=== PATIENT | female | born 1995 ===

== ENCOUNTER 2016-09-19 17:33 | Emergency (ER) | payer MEDICAID ==
[2016-09-19 17:39] VITALS: RESP 16; TEMP 98.9; BMI 32.9
[2016-09-19 18:14] LABS: ADD MANUAL DIFF? NO
[2016-09-19 18:19] LABS: BASO # 0.03 K/mm3 (0.0-2.0); BASO % 0.3 % (0.0-3.0); EOS # 0.3 (0.0-0.7); EOS % 2.9 % (1.5-5.0); GRAN # 5.26 (1.4-6.5); GRAN % 56.7 % (50.0-68.0); LYMPH # 3.2 (1.2-3.4); LYMPH % 34.4 % (22.0-35.0); MEAN CELL VOLUME 71.3 fL (80.0-105.0); MEAN CORPUSCULAR HEMOGLOBIN 22.7 pg (25.0-35.0); MEAN CORPUSCULAR HGB CONC 31.9 g/dl (31.0-37.0); MEAN PLATELET VOLUME 10.6 fl (7.0-11.0); MONO # 0.5 (0.1-0.6); MONO % 5.7 % (1.0-6.0); PLATELET COUNT 286 10^3/uL (120.0-450.0); RED CELL DISTRIBUTION WIDTH 16.9 % (11.5-14.5); WHITE BLOOD COUNT 9.3 10^3/ul (4.5-11.0)
[2016-09-19 18:21] LABS: PH,URINE 6.5 (4.7-8.0); URINE BILIRUBIN NEGATIVE (NEGATIVE); URINE BLOOD TRACE-LYSED (NEGATIVE); URINE GLUCOSE (UA) NEGATIVE (NEGATIVE); URINE KETONE NEGATIVE (NEGATIVE); URINE LEUKOCYTE ESTERASE MODERATE Leu/uL (NEGATIVE); URINE PROTEIN NEGATIVE mg/dL (<30 mg/dL); URINE UROBILINOGEN 0.2 E.U./dL (<1 E.U./dL)
[2016-09-19 18:27] LABS: URINE COLOR YELLOW (YELLOW)
[2016-09-19 18:31] LABS: ALB/GLOB RATIO 1.1 (1.1-1.8); ALKALINE PHOSPHATASE 77 U/L (38-133); ALT/SGPT 30 U/L (7-56); AST/SGOT 42 U/L (15-39); BILIRUBIN,TOTAL 0.5 mg/dL (0.2-1.3); BLOOD UREA NITROGEN 11 mg/dL (7-21); CALCIUM 9.7 mg/dL (8.4-10.5); CARBON DIOXIDE 27 mmol/L (21-33); CHLORIDE 103 mmol/L (98-107); GFR AFRICAN-AMERICAN > 60; GLUCOSE,RANDOM 83 mg/dL (70-110); SODIUM 140 mmol/L (132-148); TOTAL PROTEIN 8.3 g/dL (5.8-8.3)
--- NOTE | 2016-09-19 18:38 | ED PDOC ---
Arrival/HPI - General Chief Complaint: Psychiatric Evaluation Time Seen by Provider: 09/19/16 17:45 Historian: Patient - History of Present Illness Narrative History of Present Illness (Text): 09/19/16 18:35 20-year-old female presents today sent in by her psychiatrist for psychiatric evaluation. Patient complaining of worsening depression. Patient states 3 weeks ago she took her mother's blood pressure medication and diabetic medication in attempt to try to kill herself. Patient states that she finally went to see her psychiatrist and her psychiatrist felt that the patient needed to come into the emergency room for psychiatric evaluation. Patient is complaining of depression at present time. She denies suicidal ideation currently but states that when she attempted to kill herself 3 weeks ago it was impulsive. No chest pain or shortness of breath. No abdominal pain. No nausea or vomiting. Past Medical History - Provider Review Nursing Documentation Reviewed: Yes - Travel History Have you recently traveled outside [place] w/in the past 3 mons?: No - Tetanus Immunization Tetanus Immunization: Unknown - Psychiatric Hx Substance Use: No - Surgical History Hx Tonsillectomy: Yes Family/Social History - Physician Review Nursing Documentation Reviewed: Yes Family/Social History: Unknown Family HX Smoking Status: Never Smoked Hx Alcohol Use: No Hx Substance Use: No Allergies/Home Meds Allergies/Adverse Reactions: Allergies No Known Allergies Allergy (Verified 09/19/16 17:37) Review of Systems - Review of Systems Constitutional: absent: Fatigue, Fevers Respiratory: absent: SOB, Cough Cardiovascular: absent: Chest Pain, Palpitations Gastrointestinal: absent: Abdominal Pain, Nausea, Vomiting Genitourinary Female: absent: Dysuria Musculoskeletal: absent: Arthralgias, Back Pain, Neck Pain Skin: absent: Rash, Pruritis Neurological: absent: Headache, Dizziness Psychiatric: Depression, Suicidal Ideation Physical Exam Vital Signs Reviewed: Yes Vital Signs Temp Pulse Resp BP Pulse Ox 09/19/16 17:37 98.9 F 78 16 113/77 99 Temperature: Afebrile Blood Pressure: Normal Pulse: Regular Respiratory Rate: Normal Appearance: Positive for: Well-Appearing, Non-Toxic, Comfortable Pain Distress: None Mental Status: Positive for: Alert and Oriented X 3 - Systems Exam Head: Present: Atraumatic Mouth: Present: Moist Mucous Membranes Neck: Present: Normal Range of Motion Respiratory/Chest: Present: Clear to Auscultation, Good Air Exchange. No: Respiratory Distress, Accessory Muscle Use Cardiovascular: Present: Regular Rate and Rhythm, Normal S1, S2. No: Murmurs Abdomen: No: Tenderness, Distention, Rebound, Guarding Upper Extremity: Present: Normal ROM Lower Extremity: Present: Normal ROM Neurological: Present: GCS=15, Speech Normal Skin: Present: Warm, Dry, Normal Color. No: Rashes Psychiatric: Present: Alert, Oriented x 3, Depressed Mood Medical Decision Making ED Course and Treatment: 09/19/16 18:37 Patient is nontoxic well-appearing in no distress vital signs are stable. CBC WNL CMP WNL Tylenol WNL Salicylate WNL Alcohol level WNL Urine drug screen wnl UA; + luekocytes, + bacteria cxr: wnl ekg normal sinus rhythm at 69 bpm normal axis normal intervals no ST elevations pt with uti will treat with macrobid pt is medically cleared for PES evaluation Patient was seen and evaluated by PES screener: clement. Patient currently denying suicidal or homicidal ideation All results discussed in depth with the patient Patient cleared psychiatrically for discharge. I will discharge the patient home on Macrobid and have her follow up with primary care physician and psychiatrist within the next 2 days. I advised me to return if symptoms worsen or persist or if new concerning symptoms develop. Patient verbalizes understanding of discharge instructions and need for immediate followup. all aspects of this case were discussed the attending of record. Impression; depression, UTI Follow-up with a primary care physician within the next 2 days Macrobid twice daily 10 days Follow-up with a psychiatrist within the next 2 days Return immediately if symptoms worsen persist or if new concerning symptoms develop - Lab Interpretations Lab Results: 09/19/16 18:00 09/19/16 18:00 Lab Results 09/19/16 18:30: Urine Opiates Screen Negative, Urine Methadone Screen Negative, Ur Barbiturates Screen Negative, Ur Phencyclidine Scrn Negative, Ur Amphetamines Screen Negative, U Benzodiazepines Scrn Negative, U Oth Cocaine Metabols Negative, U Cannabinoids Screen Negative 09/19/16 18:00: WBC 9.3, RBC 5.19, Hgb 11.8 L, Hct 37.0, MCV 71.3 L, MCH 22.7 L , MCHC 31.9, RDW 16.9 H, Plt Count 286, MPV 10.6, Gran % 56.7, Lymph % (Auto) 34.4, [place] % (Auto) 5.7, Eos % (Auto) 2.9, Baso % (Auto) 0.3, Gran # 5.26, Lymph # 3.2, [place] # 0.5, Eos # 0.3, Baso # 0.03, Sodium 140, Potassium 4.0, Chloride 103, Carbon Dioxide 27, Anion Gap 14, BUN 11, Creatinine 0.6, Est GFR ( Amer) > 60, Est GFR (Non-Af Amer) > 60, Random Glucose 83, Calcium 9.7, Total Bilirubin 0.5, AST 42 H, ALT 30, Alkaline Phosphatase 77, Total Protein 8.3, Albumin 4.4, Globulin 3.9, Albumin/Globulin Ratio 1.1, Urine Color Yellow, Urine Appearance Sl cloudy, Urine pH 6.5, Ur Specific [place] 1.020, Urine Protein Negative, Urine Glucose (UA) Negative, Urine Ketones Negative, Urine Blood Trace-lysed H, Urine Nitrate Negative, Urine Bilirubin Negative, Urine Urobilinogen 0.2, Ur Leukocyte Esterase Moderate H, Urine RBC 1 - 3, Urine WBC 15 - 20, Ur Epithelial Cells 1 - 3, Urine Bacteria Mod, Urine HCG, Qual Negative , Salicylates < 1 L, Acetaminophen < 10.0 L, Alcohol, Quantitative < 10 - Medication Orders Current Medication Orders: Discontinued Medications Nitrofurantoin Macrocrystals (Macrobid) 100 mg PO STAT STA Stop: 09/19/16 20:05 Disposition/Present on Arrival - Present on Arrival Any Indicators Present on Arrival: No History of DVT/PE: No History of Uncontrolled Diabetes: No Urinary Catheter: No History of Decub. Ulcer: No History Surgical Site Infection Following: None - Disposition Have Diagnosis and Disposition been Completed?: Yes Diagnosis: Depression, UTI (urinary tract infection) Disposition: HOME/ ROUTINE Disposition Time: 20:41 Patient Plan: Discharge Patient Problems: Current Active Problems Problem Status Diagnosed Depression Acute UTI (urinary tract infection) Acute Condition: GOOD Discharge Instructions (ExitCare): Urinary Tract Infection in Women (ED) Additional Instructions: macrobid; 1 tablet twice daily x 10 days Follow-up with primary care physician within the next 2 days follow up with the psychiatrist within the next 2 days Return if symptoms worsen or persist or if new concerning symptoms develop Prescriptions: Nitrofurantoin Macrocrystals [Macrobid] 100 mg PO BID #20 cap Referrals: Hermila Kenny DO [Primary Care Provider] - [facility] [Outside[facility] - Follow up with primary Forms: WORK NOTE, SCHOOL NOTE
[2016-09-19 18:49] LABS: URINE APPEARANCE SL CLOUDY (CLEAR)
[2016-09-19 18:50] LABS: URINE WBC 15 - 20 /hpf (0-6)
[2016-09-19 18:51] LABS: URINE BACTERIA MOD (NEG)
[2016-09-20 00:47] VITALS: BP 124/75; PULSE 71; O2SAT 100
--- NOTE | 2016-09-20 11:20 | CARD ---
APPROVED REPORT EKG Measurement Heart [id number] <Conclusion> Normal sinus rhythm Voltage criteria for left ventricular hypertrophy Abnormal ECG
== END 2016-09-19 21:10 | disposition home or self-care (01) ==
LOC: ED 17:33
DX: F32.9 Major depressive disorder, single episode, unspecified (principal); N39.0 Urinary tract infection, site not specified

== ENCOUNTER 2017-05-07 04:12 | Emergency (ER) | payer MEDICAID ==
[2017-05-07 04:13] VITALS: BMI 32.9
[2017-05-07] MEDS ORDERED: Sodium Chloride 0.9% 1,000 ML IV STA (04:47)
--- NOTE | 2017-05-07 05:03 | ED PDOC ---
Arrival/HPI - General Chief Complaint: Alcohol Ingestion Time Seen by Provider: 05/07/17 04:46 Past Medical History - Tetanus Immunization Tetanus Immunization: Unknown - Cardiac Hx Cardiac Disorders: No - Pulmonary Hx Respiratory Disorders: No - Neurological Hx Neurological Disorder: No - HEENT Hx HEENT Disorder: No - Renal Hx Renal Disorder: No - Endocrine/Metabolic Hx Endocrine Disorders: No - Hematological/Oncological Hx Blood Disorders: No - Integumentary Hx Dermatological Disorder: No - Musculoskeletal/Rheumatological Hx Musculoskeletal Disorders: No - Gastrointestinal Hx Gastrointestinal Disorders: No - Genitourinary/Gynecological Hx Genitourinary Disorders: No - Psychiatric Hx Psychophysiologic Disorder: No Hx Substance Use: No - Surgical History Hx Tonsillectomy: Yes Family/Social History Smoking Status: Never Smoked Hx Alcohol Use: Yes Frequency of alcohol use: Socially Hx Substance Use: No Allergies/Home Meds Allergies/Adverse Reactions: Allergies No Known Allergies Allergy (Verified 09/19/16 17:37) Home Medications: Home Meds Medication Instructions Recorded Confirmed No Known Home Med 05/07/17 05/07/17 Medical Decision Making - EKG Interpretation EKG Interpretation (Text): 05/07/17 04:49 NSR at 66 BPM,LVH by voltage,No ectopy,intervals are wnl Interpreted by ED Physician: Yes Type: 12 lead EKG Comparison: No previous EKG avail. - Medication Orders Current Medication Orders: Sodium Chloride (Sodium Chloride 0.9%) 1,000 mls @ 30 mls/hr IV .Q24H STA Stop: 05/08/17 04:46 Disposition/Present on Arrival - Present on Arrival History of DVT/PE: No History of Uncontrolled Diabetes: No Urinary Catheter: No History of Decub. Ulcer: No History Surgical Site Infection Following: None - Disposition
--- NOTE | 2017-05-07 05:06 | ED PDOC ---
Arrival/HPI - General Chief Complaint: Alcohol Ingestion Time Seen by Provider: 05/07/17 04:46 Historian: Patient - History of Present Illness Narrative History of Present Illness (Text): 05/07/17 04:42 A 21 year old female is brought in by mother and friend, presents to the emergency department with AMS. Per mother, patient went to a libertarian with friend and drank wine. Patient was found unconscious on the floor and mother called 911. Mother states patient does not normally go to parties, and has no history of EtOH or substance abuse, or smoking. Also, she notes patient has been depressed in the past and approximately 6 months ago took her diabetes and hypertension pills, and told her mother she took them because she felt sad and ugly. Mother believes patient experienced suicidal ideation and told patient is was wrong to take the pills. Patient was not taken to the hospital at the time. Also, patient is scheduled to see a psychiatrist in 3 weeks. Patient has recently been optimistic and happy, according to mother, and does not believes she was attempting suicide at the libertarian. Believes something may have been mixed in the wine to cause her to become unresponsive. No other complaints are mentioned. Patient unable to cooperate due to AMS and intoxication. No PMD Past Medical History - Provider Review Nursing Documentation Reviewed: Yes - Tetanus Immunization Tetanus Immunization: Unknown - Cardiac Hx Cardiac Disorders: No - Pulmonary Hx Respiratory Disorders: No - Neurological Hx Neurological Disorder: No - HEENT Hx HEENT Disorder: No - Renal Hx Renal Disorder: No - Endocrine/Metabolic Hx Endocrine Disorders: No - Hematological/Oncological Hx Blood Disorders: No - Integumentary Hx Dermatological Disorder: No - Musculoskeletal/Rheumatological Hx Musculoskeletal Disorders: No - Gastrointestinal Hx Gastrointestinal Disorders: No - Genitourinary/Gynecological Hx Genitourinary Disorders: No - Psychiatric Hx Psychophysiologic Disorder: No Hx Substance Use: No - Surgical History Hx Tonsillectomy: Yes Family/Social History - Physician Review Nursing Documentation Reviewed: Yes Family/Social History: No Known Family HX Smoking Status: Never Smoked Hx Alcohol Use: Yes Frequency of alcohol use: Socially Hx Substance Use: No Allergies/Home Meds Allergies/Adverse Reactions: Allergies No Known Allergies Allergy (Verified 09/19/16 17:37) Home Medications: Home Meds Medication Instructions Recorded Confirmed No Known Home Med 05/07/17 05/07/17 Review of Systems - Review of Systems Systems not reviewed;Unavailable: Altered Mental Status Physical Exam - Physical Exam Physical Exam Limitations: Altered Mental Status Vital Signs Temp Pulse Resp BP Pulse Ox 05/07/17 06:14 95.1 F L 94 H 18 100 05/07/17 05:29 94.7 F L 78 19 104/55 L 100 05/07/17 04:17 94.7 F L 69 15 108/54 L 100 Temperature: Hypothermic Blood Pressure: Normal Pulse: Bradycardic Respiratory Rate: Normal Appearance: Positive for: Well-Appearing Mental Status: Positive for: Comatose - Systems Exam Head: Present: Atraumatic, Normocephalic Pupils: Present: PERRL Extroacular Muscles: Present: Other Conjunctiva: Present: Normal Ears: Present: Normal Mouth: Present: Moist Mucous Membranes Pharnyx: Present: Normal Nose (Internal): Present: Normal Inspection Neck: Present: Normal Range of Motion Respiratory/Chest: Present: Clear to Auscultation, Good Air Exchange Cardiovascular: Present: Regular Rate and Rhythm, Murmurs Abdomen: Present: Normal Bowel Sounds. No: Tenderness, Distention, Peritoneal Signs Back: Present: Normal Inspection Upper Extremity: Present: Normal Inspection, NORMAL PULSES. No: Tenderness, Swelling Lower Extremity: Present: Normal Inspection, Edema, NORMAL PULSES Skin: Present: Warm, Dry Psychiatric: Present: Intoxicated Medical Decision Making ED Course and Treatment: 05/07/17 04:47 Impression: 21 year old female currently AMS. Plan: -- Labs -- IV Fluids -- O2 Nasal Cannula -- IV Fluids -- Reassess and disposition Prior Visits: Notes and results from previous visits were reviewed. Patient was last seen in the emergency department on 09/19/2016 for worsening depression. Patient was d/ c home and told to follow-up with psychiatrist and primary care physician. Progress Notes:Pt continues to be deeply somnolent,maintaining her airway, nonverbal 05/07/17 06:24 Reassessment Condition: Re-examined, Unchanged - Lab Interpretations Narrative Lab Interpretation (Text): 05/07/17 06:25 Pt with quite signif ETOH level which would explain her unresponsiveness Lab Results: 05/07/17 04:35 05/07/17 04:35 Lab Results 05/07/17 04:35: Alcohol, Quantitative 245 H 05/07/17 04:35: Salicylates < 1 L, Acetaminophen < 10.0 L 05/07/17 04:35: Urine Opiates Screen Negative, Urine Methadone Screen Negative, Ur Barbiturates Screen Negative, Ur Phencyclidine Scrn Negative, Ur Amphetamines Screen Negative, U Benzodiazepines Scrn Negative, U Oth Cocaine Metabols Negative, U Cannabinoids Screen Negative 05/07/17 04:35: Sodium 143, Potassium 3.6, Chloride 103, Carbon Dioxide 20 L, Anion Gap 23 H, BUN 15, Creatinine 0.7, Est GFR ( Amer) > 60, Est GFR ( Non-Af Amer) > 60, Random Glucose 113 H, Calcium 9.3, Total Bilirubin 0.3, AST 30, ALT 30, Alkaline Phosphatase 94, Total Protein 8.3, Albumin 4.7, Globulin 3.7, Albumin/Globulin Ratio 1.3 05/07/17 04:35: WBC 11.2 H D, RBC 5.29, Hgb 11.8 L, Hct 37.5, MCV 70.9 L, MCH 22.3 L, MCHC 31.5, RDW 17.1 H, Plt Count 240, MPV 10.2, Gran % 78.1 H, Lymph % ( Auto) 17.6 L, [place] % (Auto) 2.9, Eos % (Auto) 1.1 L, Baso % (Auto) 0.3, Gran # 8.77 H, Lymph # 2.0, [place] # 0.3, Eos # 0.1, Baso # 0.03 I have reviewed the lab results: Yes - EKG Interpretation EKG Interpretation (Text): 05/07/17 06:27 EKG shows a NSR at 66BPM.No ectopy,pos voltage criteria for LVH.Otherwise wnl Interpreted by ED Physician: Yes Type: 12 lead EKG Comparison: No previous EKG avail. - Medication Orders Current Medication Orders: Sodium Chloride (Sodium Chloride 0.9%) 1,000 mls @ 30 mls/hr IV .Q24H STA Stop: 05/08/17 04:46 Last Admin: 05/07/17 05:05 Dose: 30 mls/hr eMAR Start Stop Document 05/07/17 05:05 RD (Rec: 05/07/17 05:05 RD [id number]) Intravenous Solution Start Date 05/07/17 Start Time 05:05 End Date 12/10/17 End time 06:05 Total Infusion Time 60 - Scribe Statement The provider has reviewed the documentation as recorded by the Teena Matute Provider Baronibjade Attestation: All medical record entries made by the Scribe were at my direction and personally dictated by me. I have reviewed the chart and agree that the record accurately reflects my personal performance of the history, physical exam, medical decision making, and the department course for this patient. I have also personally directed, reviewed, and agree with the discharge instructions and disposition. Disposition/Present on Arrival - Present on Arrival History of DVT/PE: No History of Uncontrolled Diabetes: No Urinary Catheter: No History of Decub. Ulcer: No History Surgical Site Infection Following: None - Disposition Forms: [employer] ([place])
[2017-05-07 05:12] LABS: BASO # 0.03 K/mm3 (0.0-2.0); BASO % 0.3 % (0.0-3.0); EOS # 0.1 (0.0-0.7); EOS % 1.1 % (1.5-5.0); GRAN # 8.77 (1.4-6.5); GRAN % 78.1 % (50.0-68.0); HEMOGLOBIN 11.8 g/dL (12.0-16.0); LYMPH % 17.6 % (22.0-35.0); MEAN CELL VOLUME 70.9 fl (80.0-105.0); MEAN CORPUSCULAR HEMOGLOBIN 22.3 pg (25.0-35.0); MEAN CORPUSCULAR HGB CONC 31.5 g/dl (31.0-37.0); MEAN PLATELET VOLUME 10.2 fl (7.0-11.0); MONO # 0.3 (0.1-0.6); MONO % 2.9 % (1.0-6.0); RBC 5.29 10^6/uL (3.5-6.1); RED CELL DISTRIBUTION WIDTH 17.1 % (11.5-14.5); WHITE BLOOD COUNT 11.2 10^3/ul (4.5-11.0)
[2017-05-07 05:21] LABS: ALB/GLOB RATIO 1.3 (1.1-1.8); ALBUMIN 4.7 g/dL (3.0-4.8); ALT/SGPT 30 U/L (7-56); AST/SGOT 30 U/L (14-36); BLOOD UREA NITROGEN 15 mg/dL (7-21); CALCIUM 9.3 mg/dL (8.4-10.5); GFR AFRICAN-AMERICAN > 60; GFR NON-AFRICAN AMERICAN > 60
[2017-05-07 05:23] LABS: ACETAMINOPHEN < 10.0 ug/ml (10.0-20.0); SALICYLATE < 1 mg/dL (2.0-20.0)
[2017-05-07 05:30] LABS: BARBITURATES, UR NEGATIVE (NEGATIVE); BENZODIAZEPINES, UR NEGATIVE (NEGATIVE); OPIATES, UR NEGATIVE (NEGATIVE); PHENCYCLIDINE, UR NEGATIVE (NEGATIVE)
--- NOTE | 2017-05-07 07:27 | ED PDOC ---
Physical Exam Vital Signs Temp Pulse Resp BP Pulse Ox 05/07/17 07:15 97.9 F 100 H 19 116/63 100 05/07/17 06:47 98.1 F 101 H 18 92/53 L 98 05/07/17 06:14 95.1 F L 94 H 18 100 05/07/17 05:29 94.7 F L 78 19 104/55 L 100 05/07/17 04:17 94.7 F L 69 15 108/54 L 100 Medical Decision Making ED Course and Treatment: 05/07/17 07:00 Case is signed out to me by Dr. Gooden. Patient came in to the emergency department with AMS. According to mother, patient went to a alliance party and drank wine. Patient was found unconscious on the floor. Currently patient is being observed until sobriety. 05/07/17 07:45 Patient is sober. She is awake, alert, and oriented x 3. No slurred speech. No ataxia. No SI or HI. Denies any pain. On reevaluation the patient is in no acute distress. Patient was given the opportunity to ask question, all questions were answered and there is agreement with the plan to discharge the patient home. Patient is stable for discharge and will be leaving with family. She has follow with her PMD and Psychiatrist. - Lab Interpretations Lab Results: 05/07/17 04:35 05/07/17 04:35 Lab Results 05/07/17 04:35: Alcohol, Quantitative 245 H 05/07/17 04:35: Salicylates < 1 L, Acetaminophen < 10.0 L 05/07/17 04:35: Urine Opiates Screen Negative, Urine Methadone Screen Negative, Ur Barbiturates Screen Negative, Ur Phencyclidine Scrn Negative, Ur Amphetamines Screen Negative, U Benzodiazepines Scrn Negative, U Oth Cocaine Metabols Negative, U Cannabinoids Screen Negative 05/07/17 04:35: Sodium 143, Potassium 3.6, Chloride 103, Carbon Dioxide 20 L, Anion Gap 23 H, BUN 15, Creatinine 0.7, Est GFR ( Amer) > 60, Est GFR ( Non-Af Amer) > 60, Random Glucose 113 H, Calcium 9.3, Total Bilirubin 0.3, AST 30, ALT 30, Alkaline Phosphatase 94, Total Protein 8.3, Albumin 4.7, Globulin 3.7, Albumin/Globulin Ratio 1.3 12/10/17 04:35: WBC 11.2 H D, RBC 5.29, Hgb 11.8 L, Hct 37.5, MCV 70.9 L, MCH 22.3 L, MCHC 31.5, RDW 17.1 H, Plt Count 240, MPV 10.2, Gran % 78.1 H, Lymph % ( Auto) 17.6 L, [place] % (Auto) 2.9, Eos % (Auto) 1.1 L, Baso % (Auto) 0.3, Gran # 8.77 H, Lymph # 2.0, [place] # 0.3, Eos # 0.1, Baso # 0.03 - Medication Orders Current Medication Orders: Sodium Chloride (Sodium Chloride 0.9%) 1,000 mls @ 30 mls/hr IV .Q24H STA Stop: 05/08/17 04:46 Last Admin: 05/07/17 05:05 Dose: 30 mls/hr eMAR Start Stop Document 05/07/17 05:05 RD (Rec: 05/07/17 05:05 RD [id number]) Intravenous Solution Start Date 05/07/17 Start Time 05:05 End Date 05/07/17 End time 06:05 Total Infusion Time 60 - Scribe Statement The provider has reviewed the documentation as recorded by the Teena Jerry Provider Scribe Attestation: All medical record entries made by the Scribe were at my direction and personally dictated by me. I have reviewed the chart and agree that the record accurately reflects my personal performance of the history, physical exam, medical decision making, and the department course for this patient. I have also personally directed, reviewed, and agree with the discharge instructions and disposition. Disposition/Present on Arrival - Present on Arrival Any Indicators Present on Arrival: No History of DVT/PE: No History of Uncontrolled Diabetes: No Urinary Catheter: No History of Decub. Ulcer: No History Surgical Site Infection Following: None - Disposition Have Diagnosis and Disposition been Completed?: Yes Diagnosis: Alcohol intolerance Disposition: HOME/ ROUTINE Disposition Time: 07:52 Patient Plan: Discharge Condition: IMPROVED Discharge Instructions (ExitCare): Alcohol Intoxication (ED) Additional Instructions: Des, thank you for letting us take care of you today. Your provider was Dr. Lira. You were treated for Alcohol Intoxication. The emergency medical care you received today was directed at your acute symptoms. If you were prescribed any medication, please fill it and take as directed. It may take several days for your symptoms to resolve. Return to the Emergency Department if your symptoms worsen, do not improve, or if you have any other problems. Please contact your doctor or call one of the physicians/clinics you have been referred to that are listed on the Patient Visit Information form that is included in your discharge packet. Bring any paperwork you were given at discharge with you along with any medications you are taking to your follow up visit. Our treatment cannot replace ongoing medical care by a primary care provider (PCP) outside of the emergency department. Thank you for allowing the [facility] team to be part of your care today. If you had an X-Ray or CT scan: A Radiologist will review the ED reading if any change in treatment is needed we will contact you. If you had a blood, urine, or wound culture: It will take several days for the results, if any change in treatment is needed we will contact you. If you had an STI test: It will take 48 hours for the results. Please call after 1 week if you have not heard back. Referrals: [facility], [Non-Staff] - Follow up with primary Forms: [employer] (Bulgarian)
[2017-05-07 07:43] VITALS: BP 116/63; PULSE 100; RESP 19; TEMP 97.9; O2SAT 100
--- NOTE | 2017-05-07 20:06 | CARD ---
APPROVED REPORT EKG Measurement Heart [id number] [id number] <Conclusion> Normal sinus rhythm Voltage criteria for left ventricular hypertrophy Abnormal ECG
== END 2017-05-07 08:00 | disposition home or self-care (01) ==
LOC: ED 04:12
DX: R41.82 Altered mental status, unspecified (principal)
CPT/HCPCS: 80053; 80320; 80324; 80329; 80345; 80346; 80349; 80353; 80358; 80361; 83992; 85025; 93005; 96360; 99284; J7040